=== PATIENT | female | born 1980 | race Hispanic/Latino ===

== ENCOUNTER 2024-09-11 08:47 | Emergency (ER) | payer BC, SELFPAY ==
[2024-09-11] VITALS (12 sets, daily range): BP systolic 108–136; BP diastolic 70–80; PULSE 58–73; RESP 10–24; TEMP 36.7; O2SAT 97–100; BMI 23.1
--- NOTE | 2024-09-11 08:57 | EKG_ITS ---
[address] [address] Test Date: 2024-09-11 Pat Name: Riccardo Diaz Department: Room: Gender: Female [place] Monitor: RAMIRO : 1980 Requested By: Order Number: [id number] Reading MD: Ludwin Estrada Measurements Intervals [place] Rate: 64 P: 76 W[place]: 142 QRS: 49 QRSD: 72 T: 44 QT: 418 QTc: 431 Interpretive Statements Normal sinus rhythm Electronically Signed On 09-11-2024 18:29:13 PST by Ludwin Estrada
--- NOTE | 2024-09-11 09:11 | DI.RAD.S_ITS ---
PROCEDURE: XR CHEST 1V INDICATIONS: chest pain TECHNIQUE: One view of the chest was acquired. COMPARISON: None. FINDINGS: Surgical changes and devices: None. Lungs and pleura: Lungs are clear. No pleural effusions or pneumothorax. Mediastinum: Mediastinal contours appear normal. Heart size is normal. Bones and chest wall: No suspicious bony lesions. Overlying soft tissues appear unremarkable. IMPRESSION: No acute cardiopulmonary abnormality is seen. Approved by: Gabriel Yung M.D. on 09/11/2024 at 9:30
[2024-09-11 09:20] LABS: Add Manual Diff / Slide Review NO; Basophils Absolute Auto 0 /uL (0-100); Basophils Percent Auto 0.8 % (0-2); Eosinophils Absolute Auto 100 /uL (0-450); Eosinophils Percent Auto 1.1 % (2-4); Hematocrit 38.6 % (36-46); Hemoglobin 12.7 g/dL (12.0-16.0); Lymphocytes Absolute Auto 1900 /uL (1100-4500); Lymphocytes Percent Auto 33.8 % (25-40); Mean Corpuscular HGB Conc 32.9 % (30-36); Mean Corpuscular Hemoglobin 28.3 PG (26-34); Monocytes Absolute Auto 500 /uL (0-900); Neutrophils Absolute Auto 3100 /uL (1500-7000); Neutrophils Percent Auto 55.3 % (50-75); Platelet Count 181 X10^3/uL (150-400); Red Blood Cell Count 4.49 X10^6/uL (4.0-5.2); Red Cell Distribution Width 15.3 % (11.6-14.8); White Blood Cell Count 5.6 X10^3/uL (4.5-11.0)
--- NOTE | 2024-09-11 09:20 | ED_ITS ---
HPI - Chest Pain General Chief Complaint: Chest Pain Stated Complaint: chest pain, arm numbness/pain, lightheaded Time Seen by Provider: 09/11/24 08:49 History of Present Illness HPI narrative: 44-year-old female with a history of iron-deficiency anemia and gastric bypass who arrives by private vehicle. Patient was reporting that approximately an hour before being seen in she had the onset of chest pain described as pressure under her left breast and radiating her left shoulder. [place] a little short of breath. No nausea or diaphoresis. Still has mild pressure at the time she is seen. No history of chest pain or cardiac disease in the past. No personal history of hypertension diabetes or elevated cholesterol. No family history of coronary disease and she is a nonsmoker. Patient reports that she has been under considerable social/ emotional stress recently. She does not use alcohol. She is status post tubal ligation and is not taking supplemental hormones. Not having leg pain or leg swelling. No recent fevers or illnesses. Related Data Allergies Allergy/AdvReac Type Severity Reaction Status Date / Time No Known Drug Allergies Allergy Verified 09/11/24 09:00 Patient History Social History Smoking Status: Unknown if ever smoked Smoking Status: Unknown if ever smoked Alcohol type: wine Exam Initial Vital Signs Initial Vital Signs: Vital Signs Temperature 98.1 F 09/11/24 08:56 Pulse Rate 69 09/11/24 08:56 Respiratory Rate 18 09/11/24 08:56 Blood Pressure 136/80 09/11/24 08:56 Pulse Oximetry 99 09/11/24 08:56 Oxygen Delivery Method Room Air 09/11/24 08:56 Course Orders Ordered: ED Orders 09/11/24 08:57 EKG-12 Lead Routine 09/11/24 09:06 Complete Blood Count AUTO DIFF Stat Comprehensive Metabolic Panel Stat Trop I [Troponin I] Stat 09/11/24 09:11 XR chest 1V Stat 09/11/24 11:13 Trop I [Troponin I] Stat Famotidine (Famotidine 20 Mg/2 Ml Vial) 20 mg IV NOW YAEL Last Admin: 09/11/24 09:24 Dose: 20 mg Documented By: MIGUELITO Reevaluation(s) Reevaluation #1: patient is feeling better prior to discharge, no chest pain Vital Signs Vital signs: Vital Signs - 8 hr 09/11/24 08:56 09/11/24 09:02 09/11/24 09:30 Temperature 98.1 F Pulse Rate 69 73 60 Respiratory Rate 18 18 13 Blood Pressure 136/80 Pulse Oximetry 99 100 100 Oxygen Delivery Method Room Air 09/11/24 09:37 09/11/24 09:37 09/11/24 10:00 Temperature Pulse Rate 60 62 Respiratory Rate 24 10 L Blood Pressure 124/70 Pulse Oximetry 100 100 Oxygen Delivery Method 09/11/24 10:01 09/11/24 10:01 09/11/24 10:30 Temperature Pulse Rate 58 L 59 L Respiratory Rate 17 Blood Pressure 108/71 Pulse Oximetry 100 100 Oxygen Delivery Method 09/11/24 10:30 09/11/24 11:00 09/11/24 11:30 Temperature Pulse Rate 63 65 Respiratory Rate 17 16 Blood Pressure 111/76 Pulse Oximetry 100 100 Oxygen Delivery Method 09/11/24 11:52 09/11/24 11:52 09/11/24 12:00 Temperature Pulse Rate 65 65 Respiratory Rate 16 16 Blood Pressure 108/71 Pulse Oximetry 97 100 Oxygen Delivery Method 09/11/24 12:01 09/11/24 12:01 Temperature Pulse Rate 61 Respiratory Rate 17 Blood Pressure 110/74 Pulse Oximetry Oxygen Delivery Method MDM - Chest Pain Lab Data Lab results narrative: CBC with diff and CMP are unremarkable she is not anemic. Troponin is normal x2 09/11/24 09:06 09/11/24 09:06 Labs: Lab Results 09/11/24 09/11/24 Range/Units 09:06 11:13 WBC 5.6 (4.5-11.0) X10^3/uL RBC 4.49 (4.0-5.2) X10^6/uL Hgb 12.7 (12.0-16.0) g/dL Hct 38.6 (36-46) % MCV 86.0 (80-100) fL MCH 28.3 (26-34) PG MCHC 32.9 (30-36) % RDW 15.3 H (11.6-14.8) % Plt Count 181 (150-400) X10^3/uL Neut % (Auto) 55.3 (50-75) % Lymph % (Auto) 33.8 (25-40) % [place] % (Auto) 9.0 (3-14) % Eos % (Auto) 1.1 L (2-4) % Baso % (Auto) 0.8 (0-2) % Neut # (Auto) 3100 (9211-2759) /uL Lymph # (Auto) 1900 (1434-9099) /uL [place] # (Auto) 500 (0-900) /uL Eos # (Auto) 100 (0-450) /uL Baso # (Auto) 0 (0-100) /uL Sodium 138 (137-145) mmol/L Potassium 3.7 (3.4-5.1) mmol/L Chloride 105 (98-107) mmol/L Carbon Dioxide 23 (22-32) mmol/L BUN 9 (7-17) mg/dL Creatinine 0.65 (0.52-1.04) mg/dL Estimated GFR > 60 (>60) mL/min BUN/Creatinine Ratio 13.8 (6-22) Glucose 96 (70-100) mg/dL Calcium 8.9 (8.4-10.2) mg/dL Total Bilirubin 0.9 (0.2-1.3) mg/dL AST 34 (14-36) IU/L ALT 19 (<35) IU/L Alkaline Phosphatase 86 (38-126) U/L Troponin I < 0.012 < 0.012 (0.01-0.034) ng/mL Total Protein 8.2 (6.3-8.2) g/dL Albumin 4.9 (3.5-5.0) g/dL Globulin 3.3 (1.7-4.1) g/dL Albumin/Globulin Ratio 1.5 (1.0-2.8) Imaging Data Chest x-ray: My Impression: independently reviewed chest x-ray, no acute findings Radiologist's Impression: reviewed radiology report, no acute disease ECG Data Interpretation: ECG shows normal sinus rhythm at 64, normal EKG MDM Narrative Medical decision making narrative: 44-year-old female seen with left-sided chest pain. No cardiac risk factors, pain does not sound typically cardiac in its onset and is not associated with exertion. Did not have ischemic EKG changes and troponins are normal x2. Has a history of gastric bypass I think esophageal reflux is likely and I started her on a proton pump inhibitor. I considered pulmonary embolism, she does not have hypoxia she does not have tachypnea he does not have risk factors I think that she meets criteria for clinical exclusion of pulmonary embolism. Discharge Plan Departure Patient Disposition: Home Clinical Impression: Chest pain Qualifiers: Chest pain type: unspecified Qualified Code(s): R07.9 - Chest pain, unspecified Activity Restrictions/Additional Instructions: emergency department evaluation today is reassuring. It does not appear that your chest pain today was related to a serious medical condition requiring further treatment or evaluation today. As we discussed, with your history of gastric bypass I think taking something to suppress stomach acid secretion such as omeprazole would be a good idea. This can be obtained without a prescription take 20 mg daily. Follow up soon with your primary care provider. If you are having increasing chest pain shortness of breath or other acute symptoms recheck in the emergency department Stand Alone Forms: Patient Portal/API/Survey
[2024-09-11] MEDS: FAMOTIDINE 20 MG/2 ML VIAL IV (09:24)
[2024-09-11 09:26] LABS: Alanine Aminotransferase 19 IU/L (<35); Albumin 4.9 g/dL (3.5-5.0); Albumin Globulin Ratio 1.5 (1.0-2.8); Alkaline Phosphatase 86 U/L (38-126); Aspartate Aminotransferase 34 IU/L (14-36); BUN Creatinine Ratio 13.8 (6-22); Bilirubin Total 0.9 mg/dL (0.2-1.3); Blood Urea Nitrogen 9 mg/dL (7-17); Calcium 8.9 mg/dL (8.4-10.2); Carbon Dioxide 23 mmol/L (22-32); Chloride 105 mmol/L (98-107); Estimated Glomerular Filt Rate > 60 mL/min (>60); Globulin 3.3 g/dL (1.7-4.1); Glucose 96 mg/dL (70-100); HEMOLYSIS 20 (0-50); Potassium 3.7 mmol/L (3.4-5.1); Sodium 138 mmol/L (137-145); Total Protein 8.2 g/dL (6.3-8.2)
[2024-09-11 09:37] LABS: Troponin I < 0.012 ng/mL (0.01-0.034)
[2024-09-11 11:50] LABS: Troponin I < 0.012 ng/mL (0.01-0.034)
== END 2024-09-11 12:24 | disposition home or self-care (01) ==
PROVIDERS: Emergency Provider Emergency Medicine
DX: R07.9 Chest pain, unspecified (principal)
CPT/HCPCS: 36415; 71045; 80053; 84484; 85025; 93005; 96374; 99284